=== PATIENT | male | born 1995 | race Hispanic/Latino ===

== ENCOUNTER 2020-12-08 14:22 | Emergency (ER) | payer OTHER ==
[~2020-12-08] VITALS: Ht 170.2 cm; Wt 83.9 kg
[2020-12-08] MEDS ORDERED: ONDA4TAB10 PO (18:49)
[2020-12-08 19:27] VITALS: BP 144/84
== END 2020-12-08 19:28 | disposition home or self-care (01) ==
LOC: EDH 14:22
DX: A08.4 Viral intestinal infection, unspecified (principal); Z20.822 Contact with and (suspected) exposure to COVID-19
CPT/HCPCS: 71045; 87635; 87804 ×2; 99284; C9803